=== PATIENT | female | born 1975 ===

== ENCOUNTER 2016-08-13 08:15 | Day surgery (SDC) | payer OTHER ==
[2016-08-08 11:18] VITALS: BMI 28.8
[2016-08-13] MEDS ORDERED: Propofol 10 mg/ml Inj (20 ML) ONE (10:22)
[2016-08-13] MEDS ORDERED: Midazolam 2 MG/2 ML VIAL ONE (10:23)
[2016-08-13] MEDS ORDERED: cefOXitin IV 2 gm in Dextrose 2 GM/50 ML BAG IVPB ONE (10:24)
[2016-08-13] MEDS ORDERED: Bupivacaine 0.5% Inj(30mL) ONE (10:25)
[2016-08-13] MEDS ORDERED: ePHEDrine 50 mg/ml Inj ONE (10:32)
[2016-08-13] MEDS ORDERED: Lidocaine Hydrochloride 5 ML INJ ONE (10:44)
[2016-08-13] MEDS ORDERED: Methylene Blue 10 mg/ml (1ml) Inj ONE (11:43)
[2016-08-13] MEDS ORDERED: Lactated Ringer's 1,000 ML IV ONE ×3 (12:08→18:30)
[2016-08-13] MEDS: HYDROmorphone 0.5 mg/0.5 ml ISec IVP PRN ×4 (12:10→13:48)
[2016-08-13] MEDS ORDERED: Albuterol-Ipratrop 3 mg / 0.5 (3 ml) UD ONE (14:32)
[2016-08-13] MEDS ORDERED: Albuterol-Ipratrop 3 mg / 0.5 (3 ml) UD INH STA (14:35)
[2016-08-13] MEDS ORDERED: Trimethobenzamide 200 mg/2 mL Inj IM PRN (15:09)
--- NOTE | 2016-08-13 15:19 | PCM.SURG1 ---
Surgeon's Initial Post Op Note - Surgeon's Notes Surgeon: Dr Herrera Assembler [employer]: dR Katz , Consult with Dr. Watkins Type of Anesthesia: General Endo, General LMA Pre-Operative Diagnosis: 41 yo with chronic pelvic pain, R ovarian cyst and Left hydrosalpinx, ovarian cyst Operative Findings: 41 yo with right ovarian cyst and multiple adhesion intraoperative consult Dr. Watkins, Left hydrosaplinx , Lysis of adhesion performed Post-Operative Diagnosis: Same as above in addition multiple adhesion Operation Performed: Laparoscopy Bilateral Salpingoophorectomy, FARHAN Specimen/Specimens Removed: R and Left tubes and ovaries Estimated Blood Loss: EBL {In ML}: 10 Blood Products Given: N/A Drains Used: No Drains Post-Op Condition: Good Date of Surgery/Procedure: 08/13/16 Time of Surgery/Procedure: 15:20
[2016-08-13] MEDS ORDERED: HYDROmorphone 0.5 mg/0.5 ml ISec IVP PRN (16:01)
[2016-08-13] MEDS ORDERED: HYDROmorphone 0.5 mg/0.5 ml ISec ONE (16:05)
--- NOTE | 2016-08-13 16:17 | RAD ---
HISTORY: chf COMPARISON: No prior. FINDINGS: LUNGS: Mild venous congestion. Question mild increased markings at the left lung base. Clinical correlation. PLEURA: No significant pleural effusion identified, no pneumothorax apparent. CARDIOVASCULAR: Normal. OSSEOUS STRUCTURES: No significant abnormalities. VISUALIZED UPPER ABDOMEN: Normal. OTHER FINDINGS: None. IMPRESSION: Mild venous congestion. Question mild increased markings at the left lung base. Clinical correlation.
[2016-08-13] MEDS: Albuterol-Ipratrop 3 mg / 0.5 (3 ml) UD INH SCH (21:05)
[2016-08-14] MEDS: Albuterol-Ipratrop 3 mg / 0.5 (3 ml) UD INH SCH ×4 (00:16→16:04)
[2016-08-14] MEDS: Pantoprazole 40 mg EC Tab PO SCH (09:40)
--- NOTE | 2016-08-14 10:17 | CARD ---
APPROVED REPORT EKG Measurement Heart [id number] <Conclusion> Sinus rhythm with 1st degree AV block Low voltage QRS Cannot rule out Anterior infarct, age undetermined Abnormal ECG
--- NOTE | 2016-08-14 18:58 | CP.PCM.PN ---
Subjective - Date & Time of Evaluation Date of Evaluation: 08/14/16 Time of Evaluation: 18:57 - Subjective Subjective: pt dependent on cpap, does not feel strong enough, tolerating PO intake, some walking, pain controlled when taking meds Objective - Vital Signs/Intake and Output Vital Signs (last 24 hours): vitals likely incorrect entry, pulse is 69, pulse ox is 98 Temp Pulse Resp BP Pulse Ox 98.3 F 98 H 18 107/71 69 L 08/14/16 16:10 08/14/16 16:10 08/14/16 16:10 08/14/16 16:10 08/14/16 16:10 Intake and Output: 08/14/16 08/14/16 06:59 18:59 Intake Total 500 700 Balance 500 700 - Medications Medications: Current Medications Albuterol/Ipratropium (Duoneb 3 Mg/0.5 Mg (3 Ml) Ud) 3 ml INH RQ8 [facility] Last Admin: 08/14/16 16:04 Dose: 3 ml Docusate Sodium (Colace) 100 mg PO BID [facility] Last Admin: 08/14/16 17:05 Dose: 100 mg Fluoxetine HCl (Prozac) 20 mg PO HS [facility] Last Admin: 08/13/16 23:04 Dose: 20 mg Furosemide (Lasix) 40 mg PO DAILY [facility] Last Admin: 08/14/16 10:20 Dose: 40 mg Gabapentin (Neurontin) 600 mg PO HS [facility] Last Admin: 08/13/16 23:04 Dose: 600 mg Pantoprazole Sodium (Protonix Ec Tab) 40 mg PO DAILY [facility] Last Admin: 08/14/16 09:40 Dose: 40 mg Topiramate (Topamax) 50 mg PO Q12 [facility] Last Admin: 08/14/16 09:41 Dose: 50 mg Tramadol HCl (Ultram) 50 mg PO BID [facility] Last Admin: 08/14/16 17:07 Dose: 50 mg Trimethobenzamide HCl (Tigan) 200 mg IM Q6 PRN PRN Reason: Nausea/Vomiting Last Admin: 08/13/16 16:35 Dose: 200 mg Assessment and Plan - Assessment and Plan (Free Text) Assessment: s/p lpsc cystectomy pain poorly controlled pt not respiring deeply and cpap dependent Plan: observe one ore sleep cycle
[2016-08-15 00:31] VITALS: RESP 20
[2016-08-15] MEDS: Albuterol-Ipratrop 3 mg / 0.5 (3 ml) UD INH SCH ×3 (00:33→15:58)
[2016-08-15] MEDS: Pantoprazole 40 mg EC Tab PO SCH (09:18)
[2016-08-15 17:23] VITALS: BP 99/66; PULSE 88; TEMP 98; O2SAT 96
--- NOTE | 2016-08-15 17:48 | CP.PCM.PN ---
Subjective - Date & Time of Evaluation Date of Evaluation: 08/15/16 Time of Evaluation: 17:47 - Subjective Subjective: doing well, ambulating, pain controlled, voiding, passing gas Objective - Vital Signs/Intake and Output Vital Signs (last 24 hours): Temp Pulse Resp BP Pulse Ox 98 F 88 20 99/66 L 96 08/15/16 16:00 08/15/16 16:00 08/15/16 16:00 08/15/16 16:00 08/15/16 16:00 Intake and Output: 08/15/16 08/15/16 06:59 18:59 Intake Total 300 Balance 300 - Medications Medications: Current Medications Albuterol/Ipratropium (Duoneb 3 Mg/0.5 Mg (3 Ml) Ud) 3 ml INH RQ8 [facility] Last Admin: 08/15/16 15:58 Dose: 3 ml Docusate Sodium (Colace) 100 mg PO BID [facility] Last Admin: 08/15/16 09:18 Dose: 100 mg Fluoxetine HCl (Prozac) 20 mg PO HS [facility] Last Admin: 08/14/16 21:40 Dose: 20 mg Furosemide (Lasix) 40 mg PO DAILY [facility] Last Admin: 08/15/16 09:18 Dose: 40 mg Gabapentin (Neurontin) 600 mg PO HS [facility] Last Admin: 08/14/16 21:40 Dose: 600 mg Pantoprazole Sodium (Protonix Ec Tab) 40 mg PO DAILY [facility] Last Admin: 08/15/16 09:18 Dose: 40 mg Topiramate (Topamax) 50 mg PO Q12 [facility] Last Admin: 08/15/16 09:18 Dose: 50 mg Tramadol HCl (Ultram) 50 mg PO BID [facility] Last Admin: 08/15/16 09:18 Dose: 50 mg Trimethobenzamide HCl (Tigan) 200 mg IM Q6 PRN PRN Reason: Nausea/Vomiting Last Admin: 08/13/16 16:35 Dose: 200 mg - Constitutional Appears: Well - GI/Abdominal Exam GI & Abdominal Exam: Soft, Normal Bowel Sounds. absent: Tenderness Additional comments: incision c/d/i Assessment and Plan - Assessment and Plan (Free Text) Assessment: pod #2 Plan: stable for d/c
--- NOTE | 2016-11-15 08:56 | OP ---
PROCEDURE DATE: 08/13/2016 PREOPERATIVE DIAGNOSIS: A 41-year-old female with chronic pelvic pain, right ovarian cyst, as well as left hydrosalpinx. POSTOPERATIVE DIAGNOSIS: A 41-year-old female with chronic pelvic pain, right ovarian cyst, left hydrosalpinx and multiple adhesions identified intraoperatively. PROCEDURES: Laparoscopy, bilateral salpingo-oophorectomy and lysis of adhesions. SURGEON: Dr. Herrera. SLEEVE WHEEL MAKER: Dr. Davies, as well as intraoperative consult called for Dr. Watkins, which is general surgeon due to multiple adhesions. TYPE OF ANESTHESIA: General. COMPLICATIONS: None. IV FLUID INTAKE: 2000 mL URINE OUTPUT: 400 mL FINDINGS: The patient was a 41-year-old female who had chronic pelvic pain. She had a right adnexal mass, which appeared fluid filled. She had multiple adhesions. The left ovary was stuck to the side wall and multiple adhesions noted and sigmoid colon also was stuck to the side wall. Intraoperative consult, Dr. Watkins was called. INDICATION: A 41-year-old female who had chronic pelvic pain, with failure of medical therapy. She was informed that in the event that she did undergo this procedure, which was a laparoscopic salpingo-oophorectomy. Her chronic pelvic pain can recur due to adhesions. She was informed of the risks factors, benefits and alternatives of the procedure. Risks factors included infection, bleeding, damage to the surrounding organs and tissues, complication from anesthesia and possible . Risks factors explained but not limited to. Once all her questions are answered and informed consent was obtained, the patient was then taken to the operating room, placed in dorsal lithotomy position and that particular time, a weighted speculum was placed in the vagina. The anterior lip of the cervix was grasped with single-tooth tenaculum. She did not have a uterus because she had a hysterectomy, but we just did an examination under anesthesia and that particular instance, attention was turned to the umbilical fold. A 5 mm optic view was introduced under direct visualization. Another 5 mm port was placed approximately 2 cm above the pubic symphysis under direct visualization. Another part were placed on the left side as well as right side under direct visualization. It was noted that she had a right ovarian cyst, which was clear fluid and that particular instance, Dr. Watkins was called for lysis of adhesions. The LigaSure device was utilized in order to remove the right tube as well as ovary. Excellent hemostasis was noted. With same device of LigaSure, it was utilized to also remove the left tubes and ovary and lysis of adhesions was performed by Dr Watkins. In that particular instance, the EndoCatch bag was used and the right and left ovary and tubes were facing the back, it was removed intact through the suprapubic incision, so the skin was then extended around the incision in the fascia using the Combs scissors, so the EndoCatch bag went through the site. Excellent hemostasis was noted. In that particular instance, under direct visualization, the ports were removed. The fascia of the suprapubic incision was then repaired using a running 0 Vicryl stitch under UR6 needle. The skin was then closed with 4-0 Monocryl. Excellent hemostasis was noted. The remainder of the incisions was closed. All instruments were removed for the abdomen. Instrument and lap counts were correct x2. The patient tolerated the procedure well and she was sent to recovery room in stable condition. Roxy Herrera MD
== END 2016-08-15 18:30 | disposition home or self-care (01) ==
LOC: C.SDS 08:15 → C.6T 14:02 → C.4M 14:02 → C.SDS 08-15 18:30
PROVIDERS: ATTEND Obstetrics & Gynecology
DX: D27.1 Benign neoplasm of left ovary (principal); N80.2 Endometriosis of fallopian tube; N70.11 Chronic salpingitis; G89.29 Other chronic pain; R10.2 Pelvic and perineal pain; N83.12 Corpus luteum cyst of left ovary; N83.11 Corpus luteum cyst of right ovary; D27.0 Benign neoplasm of right ovary
CPT/HCPCS: 36415; 58661; 71010; 86850; 86900; 88304; 88307; 88342; 93005; 94640; 94660; J0694; J1170; J2250; J2405; J2704; J3010; J3250; J7120